=== PATIENT | female | born 2005 | race Hispanic/Latino ===

== ENCOUNTER 2024-12-22 04:54 | Emergency (ER) | payer OTHER ==
[~2024-12-22] VITALS: Ht 154.9 cm; Wt 63.5 kg
[2024-12-22] MEDS: SODIUM CHLORIDE 0.9% 1000ML 1,000 ML IV ONE (05:13)
[2024-12-22] MEDS: ONDANSETRON HCL INJ 2MG/ML 2ML 2 MG/ML VIAL IV STA (05:13)
[2024-12-22 05:29] LABS: BASOPHILS % 0.4 % (0.0-1.0); EOSINOPHILS % 1.3 % (0.0-6.0); LYMPHOCYTES % 24.2 % (18.0-39.1); MONOCYTES % 6.2 % (4.4-11.3); NEUTROPHILS % 67.7 % (38.7-80.0); RED CELL DISTRIBUTION WIDTH 11.6 % (11.7-14.4)
[2024-12-22 05:45] LABS: AMPHETAMINES SCREEN,URINE NEGATIVE (NEGATIVE); CANNABINOIDS SCREEN,URINE POSITIVE (NEGATIVE); COCAINE SCREEN,URINE NEGATIVE (NEGATIVE); METHADONE SCREEN, URINE NEGATIVE (NEGATIVE); OPIATES SCREEN,URINE NEGATIVE (NEGATIVE)
[2024-12-22 05:49] LABS: EST GLOMERULAR FILTRATION RATE 127.0 ML/MIN (>=60)
[2024-12-22 06:19] VITALS: PULSE 65; RESP 18; TEMP 98.4; O2SAT 100
[2024-12-22 06:41] LABS: EPITHELIAL CELLS,URINE FEW /LPF; LEUKOCYTE ESTERASE ,URINE NEGATIVE (NEGATIVE); PROTEIN,URINE DIPSTICK 1+ (NEGATIVE); URINE UROBILINOGEN 0.2 mg/dL (0.2 - 1); WBC,URINE (MAN) 0-5 /HPF (0-5)
== END 2024-12-22 06:18 | disposition home or self-care (01) ==
LOC: ER 05:49
DX: R11.2 Nausea with vomiting, unspecified (principal); F12.10 Cannabis abuse, uncomplicated; F10.129 Alcohol abuse with intoxication, unspecified; E10.9 Type 1 diabetes mellitus without complications
CPT/HCPCS: 36415; 80053; 80307; 80320; 81001; 81025; 85025; 99283; J2405; J7030